=== PATIENT | female | born 1995 | race Caucasian/White ===

== ENCOUNTER 2021-07-22 21:25 | Emergency (ER) | payer SELFPAY ==
[2021-07-23 00:31] VITALS: BP 118/84
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
== END 2021-07-23 01:07 | disposition home or self-care (01) ==
LOC: ED 21:25
DX: S01.312A Laceration without foreign body of left ear, initial encounter (principal); Z79.899 Other long term (current) drug therapy; Y04.8XXA Assault by other bodily force, initial encounter; Y93.89 Activity, other specified; Y92.099 Unspecified place in other non-institutional residence as the place of occurrence of the external cause; Y99.8 Other external cause status

== ENCOUNTER 2022-04-29 17:16 | Emergency (ER) | payer SELFPAY ==
[2022-04-29 17:59] VITALS: BP 114/81
[2022-04-29 18:50] LABS: HCG Qualitative,Urine Negative (Negative)
[2022-04-29 18:53] LABS: Bilirubin,Urine NEG (Negative); Blood,Urine SM (Negative); Color,Urine Yellow (Yellow)
== END 2022-04-30 01:00 | disposition left against medical advice (07) ==
LOC: ED 17:16
DX: N83.8 Other noninflammatory disorders of ovary, fallopian tube and broad ligament (principal); Z53.21 Procedure and treatment not carried out due to patient leaving prior to being seen by health care provider
CPT/HCPCS: 81001; 81025